=== PATIENT | female | born 1985 | race Asian ===

== ENCOUNTER 2018-08-23 05:45 | Day surgery (SDC) | payer OTHER ==
[~2018-08-23 05:45] MED LIST: Buffered Lidocaine 1% SYRIN* 1 ML/SYRINGE INTRADERM ONE
[2018-08-23] MEDS ORDERED: Famotidine IV* 10 MG/ML 2 ML (20 mg) IV ONE (06:00)
[2018-08-23] MEDS ORDERED: Lactated Ringers 1000 ML Bag* 1,000 ML IV SCH (06:00)
[2018-08-23] MEDS ORDERED: Dexamethasone IV* 4 MG/ML 1 ML (4 MG) IV SLOW PU ONE (06:00)
[2018-08-23] MEDS ORDERED: Scopolamine 1.5 mg* PATCH TRANSDERM ONE (06:00)
[2018-08-23] MEDS ORDERED: Dexamethasone IV* 4 MG/ML 1 ML (4 MG) ONE (06:03)
[2018-08-23] MEDS ORDERED: Famotidine IV* 10 MG/ML 2 ML (20 mg) ONE (06:04)
[2018-08-23] MEDS ORDERED: Scopolamine 1.5 mg* PATCH ONE (06:04)
[2018-08-23] MEDS ORDERED: Bupivacaine 0.25% SDV PF* 10 ML VIAL INJ ONE (07:17)
[2018-08-23] MEDS ORDERED: Lidocaine 1% INJ* 10 MG/ML 30 ML SDV ONE (07:17)
[2018-08-23] MEDS ORDERED: fentaNYL* 50 MCG/ML 2 ML VIAL (100 MCG VIAL) ONE (07:23)
[2018-08-23] MEDS ORDERED: Succinylcholine* 20 MG/ML 10 ML VIAL ONE (07:23)
[2018-08-23] MEDS ORDERED: Propofol* 10 MG/ML 20 ML BTL ONE (07:23)
[2018-08-23] MEDS ORDERED: Midazolam* 1 MG/ML 5 ML VIAL (5 MG) ONE (07:23)
[2018-08-23] MEDS ORDERED: Lidocaine 2% PF * 5 ML VIAL ONE (07:24)
[2018-08-23] MEDS ORDERED: Naloxone* 0.4 MG/ML 1 ML VIAL IV PRN (08:08)
[2018-08-23] MEDS ORDERED: DiMENhydriNATE IV* 50 MG/ML VIAL IV PUSH PRN (08:08)
[2018-08-23] MEDS ORDERED: HYDROcodone/ACETAMIN 5-325 MG* 1 TAB PO PRN (08:08)
[2018-08-23] MEDS ORDERED: fentaNYL* 50 MCG/ML 2 ML VIAL (100 MCG VIAL) IV PRN (08:08)
[2018-08-23] MEDS ORDERED: oxyCODONE/Acetamin 5/325 MG* TAB PO PRN (08:08)
[2018-08-23] MEDS ORDERED: Phenylephrine 40 MCG/ML SYRINGE ONE (08:26)
[2018-08-23] MEDS ORDERED: Ondansetron INJ* 2 MG/ML VIAL ONE (09:38)
--- NOTE | 2018-08-23 12:19 | OP ---
DICTATION ENDS ABRUPTLY - FULLY REDICTATED DATE OF OPERATION: 08/23/18 - [facility] DATE OF : 89 SERVICE: General Surgery. SURGEON: Zahraa Bauer MD BAG BAILER: Nanci Bennett MD ANESTHESIOLOGIST: Dr. Terrance March. ANESTHESIA: General endotracheal anesthesia. PRE-OP DIAGNOSIS: Papillary thyroid carcinoma. POST-OP DIAGNOSIS: Papillary thyroid carcinoma. OPERATIVE PROCEDURE: Right thyroid lobectomy. INDICATIONS: Ms. Lorenzo is a very pleasant 33-year-old female with a history of an incidentally found right thyroid nodule that on followup was biopsied and found to be papillary thyroid carcinoma. Given that it was only 1 cm, she elected to undergo a right hemithyroidectomy. She understood the risks, benefits, and alternatives of the procedure, and she wished to proceed. SPECIMEN: Right thyroid lobe. DESCRIPTION OF PROCEDURE: The patient was brought back to the operating room and placed on the operating table in the supine position. Sequential compression devices were placed on the bilateral lower extremities for DVT prophylaxis. No antibiotics were administered. The patient underwent general endotracheal anesthesia. Her neck was positioned in the extended position and the nerve monitoring electrodes were DICTATION ENDS ABRUPTLY [id number]/[facility] #: [id number] MTDD
[2018-08-23 15:51] VITALS: BP 97/53
--- NOTE | 2018-08-23 23:46 | OP ---
CC: Dr. Sixto Mahan * DATE OF OPERATION: 08/23/18 - SDS DATE OF : 89 SERVICE: General Surgery. SURGEON: Zahraa Bauer MD ELEVATOR CONSTRUCTOR ELECTRIC: Nanci Bennett MD ANESTHESIOLOGIST: Dr. Terrance March. PRE-OP DIAGNOSIS: Papillary thyroid cancer. POST-OP DIAGNOSIS: Papillary thyroid cancer. OPERATIVE PROCEDURE: Right thyroid lobectomy. INDICATIONS: Ms. Lorenzo is a very pleasant 33-year-old female with no significant past medical history who was found incidentally to have a right thyroid nodule. During followup for this, she had a biopsy that confirmed papillary thyroid cancer. Therefore, she gave informed consent for a right thyroid lobectomy given that this was a 1 cm nodule. She understood the risks, benefits, and alternatives of the procedure, and she wished to proceed. SPECIMEN: Right thyroid lobe. ESTIMATED BLOOD LOSS: Minimal, less than 10 cc. DESCRIPTION OF PROCEDURE: The patient was brought back to the operating room and placed on the operating table in the supine position. Sequential compression devices were placed on the bilateral lower extremities for DVT prophylaxis. Antibiotics were not administered. The patient underwent general endotracheal anesthesia. Prior to beginning the procedure, a time-out was performed verifying the patient's name, MR number, and the procedure to be performed. At this point, local anesthesia was administered to the neck prior to prepping the patient, it was consisting of 1% lidocaine in 0.25% Marcaine. After this was done, the neck was prepped and draped in normal sterile fashion and then a second time-out was performed verifying the patient's name, MR number , and the laterality of the procedure which was the right thyroid lobectomy. Next, a transverse incision was made in the midline of the neck approximately 2 fingerbreadths above the sternal notch in a natural crease line that had been previously marked. The skin was divided down to the subcutaneous tissue and the platysma was then divided. Inferior and superior subplatysmal flaps were developed and the strap muscles were divided in the midline and retracted laterally. The isthmus was divided superiorly and then a tunnel was made underneath the thyroid gland, and then the isthmus was divided inferiorly and superiorly after making a tunnel underneath the thyroid. Once the isthmus was divided, the medial attachments were then divided off the trachea. The space of Reeve's was developed and then the strap muscles were divided off of the right thyroid lobe laterally. The middle thyroid vein was taken. Once this was done, the superior pole vessels were then divided using combination of LigaSure and a 2-0 silk suture. Once this was done, the thyroid was then lifted up and out of the neck and then the recurrent laryngeal nerve was identified and its entire course was traced out, and once this was done, the thyroid was able to taken safely off the trachea using LigaSure. Once this was done, the right thyroid lobe was taken off the table as specimen after checking for no parathyroid glands. Actually, the parathyroids were identified in situ, both the right upper and lowers were identified. After this was done, hemostasis was obtained. Tisseel was placed in the neck. The strap muscles were reapproximated using interrupted 3-0 Vicryl sutures and then the platysma was approximated using interrupted 3-0 Vicryl sutures. Once this was done, a Prolene suture was used to close the skin. A sterile dressing was in place and the patient's anesthesia was reversed and she was taken to the PACU in stable condition. At the end of the case, all counts were correct and I was present during the entirety of the case. [id number]/[facility] #: [id number] PRASANTH
[2018-08-26] MEDS ORDERED: Scopolamine PATCH Remove* 1 NOTE MISC PATCH OFF ONE (06:00)
== END 2018-08-23 16:36 | disposition home or self-care (01) ==
LOC: OR 05:45
PROVIDERS: ATTEND Surgery
DX: C73 Malignant neoplasm of thyroid gland (principal)
CPT/HCPCS: 81025; 88307; A9270-GY; C1776; J0330; J1100; J2250; J2405; J2704; J3010; J3490

== ENCOUNTER 2018-08-25 00:38 | Emergency (ER) | payer OTHER ==
[2018-08-25 02:17] LABS: ABS Basophils 0 10^3/ul (0-0.2); ABS Eosinophils 0 10^3/ul (0-0.6); ABS Lymphocytes 1.4 10^3/ul (1.0-4.8); ABS Monocytes 0.5 10^3/ul (0-0.8); ABS Neutrophils 10.5 10^3/ul (1.5-7.7); ABS Nucleated RBC 0 10^3/ul; Eosinophil % 0.1 %; Hematocrit 37 % (33-41); Hemoglobin 12.6 g/dL (12.0-16.0); Lymphocyte % 11.5 %; Mean Corpuscular HGB Conc 34 g/dL (31-36); Mean Corpuscular Hemoglobin 31 pg (27-31); Mean Corpuscular Volume 92 fL (80-97); Mean Platelet Volume 7.9 fL (7.4-10.4); Nucleated Red Blood Cells % 0; Platelet Count 278 10^3/uL (150-450); Red Blood Count 4.07 10^6 /uL (3.70-4.87); Red Cell Distribution Width 13 % (10.5-15); White Blood Count 12.5 10^3/uL (3.5-10.8)
[2018-08-25 02:36] LABS: ALT 10 U/L (7-52); AST 12 U/L (13-39); Albumin 4.7 g/dL (3.2-5.2); Albumin/Globulin Ratio 1.7 (1-3); Alkaline Phosphatase 34 U/L (34-104); Anion Gap 8 mmol/L (2-11); BUN/Creatinine Ratio 14.3 (8-20); Blood Urea Nitrogen 8 mg/dL (6-24); CO2 Carbon Dioxide 27 mmol/L (22-32); Chloride 105 mmol/L (101-111); EGFR African American 152.8 (>60); EGFR Non-African American 126.3 (>60); Globulin 2.7 g/dL (2-4); Glucose 112 mg/dL (70-100); Potassium 3.5 mmol/L (3.5-5.0); Sodium 140 mmol/L (135-145); Total Protein 7.4 g/dL (6.4-8.9)
[2018-08-25 02:42] LABS: HCG Pregnancy < 0.60 mIU/mL
--- NOTE | 2018-08-25 03:09 | ED ---
GI/ HPI - HPI Summary HPI Summary: This patient is a 33 year old female brought in by EMS presenting to [facility] with a chief complaint of constipation s/p partial thyroidectomy yesterday. The patient took one Percocet last night. The patient also complains of neck pain. She states she is unable to urinate and unable to have a BM. She has difficulty ambulating. She rates her pain 10/10 in severity. Patient denies fever. - History of Current Complaint Chief Complaint: EDConstipation Time Seen by Provider: 08/25/18 02:41 Stated Complaint: CONSTIPATION/UNABLE TO URINATE AFTER SURGERY Hx Obtained From: Patient Onset/Duration: Started Hours Ago Timing: Constant Pain Intensity: 10 Location of Pain: Suprapubic Associated Signs and Symptoms: Positive: Constipation - Allergy/Home Medications Allergies/Adverse Reactions: Allergies Allergy/AdvReac Type Severity Reaction Status Date / Time No Known Allergies Allergy Verified 08/25/18 00:46 PMH/Surg Hx/FS Hx/Imm Hx Endocrine/Hematology History: Reports: Hx Thyroid Disease - THYROID CANCER Denies: Hx Diabetes, Hx Anemia Cardiovascular History: Denies: Hx Pacemaker/ICD, Other Cardiovascular Problems/Disorders Respiratory History: Denies: Other Respiratory Problems/Disorders GI History: Reports: Other GI Disorders - GALLSTONES Denies: Hx Jaundice History: Denies: Other Problems/Disorders Musculoskeletal History: Reports: Other Musculoskeletal History - Left ankle swelling, fell on Sunday Sensory History: Reports: Hx Contacts or Glasses - GLASSES Denies: Hx Hearing Aid Opthamlomology History: Reports: Hx Contacts or Glasses - GLASSES Neurological History: Denies: Other Neuro Impairments/Disorders - Cancer History Hx Chemotherapy: No - Surgical History Surgery Procedure, Year, and Place: 2 WISDOM TEETH REMOVED 3-4 YEARS AGO Hx Anesthesia Reactions: No Infectious Disease History: No Infectious Disease History: Denies: Traveled Outside the [place] in Last 30 Days - Family History Known Family History: Negative: Cardiac Disease - Social History Alcohol Use: Occasionally Substance Use Type: Reports: None Hx Tobacco Use: No Smoking Status (MU): Never Smoked Tobacco Have You Smoked in the Last Year: No Review of Systems Negative: Fever Positive: other - Constipation Positive: Other - Neck pain All Other Systems Reviewed And Are Negative: Yes Physical Exam - Summary Physical Exam Summary: VITAL SIGNS: Reviewed. GENERAL: Patient is a well-developed and nourished FEMALE who is lying comfortable in the stretcher. Patient is not in any acute respiratory distress. Small dressing over the front of her neck HEAD AND FACE: No signs of trauma. No ecchymosis, hematomas or skull depressions. No sinus tenderness. EYES: PERRLA, EOMI x 2, No injected conjunctiva, no nystagmus. EARS: Hearing grossly intact. Ear canals and tympanic membranes are within normal limits. MOUTH: Oropharynx within normal limits. NECK: Supple, trachea is midline, no adenopathy, no JVD, no carotid bruit, no c- spine tenderness, neck with full ROM. CHEST: Symmetric, no tenderness at palpation LUNGS: Clear to auscultation bilaterally. No wheezing or crackles. CVS: Regular rate and rhythm, S1 and S2 present, no murmurs or gallops appreciated. ABDOMEN: Soft, non-tender. No rebound no guarding, and no masses palpated. Bowel sounds are normal. Distended bladder. EXTREMITIES: FROM in all major joints, no edema, no cyanosis or clubbing. NEURO: Alert and oriented x 3. No acute neurological deficits. Speech is normal and follows commands. SKIN: Dry and warm Triage Information Reviewed: Yes Vital Signs On Initial Exam: Initial Vitals Temp Pulse Resp BP Pulse Ox 99.2 F 75 16 124/58 99 08/25/18 00:44 08/25/18 00:44 08/25/18 00:44 08/25/18 00:44 08/25/18 00:44 Vital Signs Reviewed: Yes Diagnostics - Vital Signs Vital Signs Temp Pulse Resp BP Pulse Ox 08/25/18 00:44 99.2 F 75 16 124/58 99 - Laboratory Lab Results: Lab Results 08/25/18 08/25/18 08/25/18 Range/Units 02:08 02:08 02:08 WBC 12.5 H (3.5-10.8) 10^3/uL RBC 4.07 (3.70-4.87) 10^6 /uL Hgb 12.6 (12.0-16.0) g/dL Hct 37 (33-41) % MCV 92 (80-97) fL MCH 31 (27-31) pg MCHC 34 (31-36) g/dL RDW 13 (10.5-15) % Plt Count 278 (150-450) 10^3/uL MPV 7.9 (7.4-10.4) fL Neut % (Auto) 84.2 % Lymph % (Auto) 11.5 % Emanuel % (Auto) 4.0 % Eos % (Auto) 0.1 % Baso % (Auto) 0.2 % Absolute Neuts (auto) 10.5 H (1.5-7.7) 10^3/ul Absolute Lymphs (auto) 1.4 (1.0-4.8) 10^3/ul Absolute Monos (auto) 0.5 (0-0.8) 10^3/ul Absolute Eos (auto) 0 (0-0.6) 10^3/ul Absolute Basos (auto) 0 (0-0.2) 10^3/ul Absolute Nucleated RBC 0 10^3/ul Nucleated RBC % 0 Sodium 140 (135-145) mmol/L Potassium 3.5 (3.5-5.0) mmol/L Chloride 105 (101-111) mmol/L Carbon Dioxide 27 (22-32) mmol/L Anion Gap 8 (2-11) mmol/L BUN 8 (6-24) mg/dL Creatinine 0.56 (0.51-0.95) mg/dL Est GFR ( Amer) 152.8 (>60) Est GFR (Non-Af Amer) 126.3 (>60) BUN/Creatinine Ratio 14.3 (8-20) Glucose 112 H (70-100) mg/dL Lactic Acid 0.7 (0.5-2.0) mmol/L Calcium 9.0 (8.6-10.3) mg/dL Total Bilirubin 1.00 (0.2-1.0) mg/dL AST 12 L (13-39) U/L ALT 10 (7-52) U/L Alkaline Phosphatase 34 (34-104) U/L C-Reactive Protein 6.50 (<8.01) mg/L Total Protein 7.4 (6.4-8.9) g/dL Albumin 4.7 (3.2-5.2) g/dL Globulin 2.7 (2-4) g/dL Albumin/Globulin Ratio 1.7 (1-3) Beta HCG, Quant < 0.60 mIU/mL Result Diagrams: 08/25/18 02:08 08/25/18 02:08 Lab Statement: Any lab studies that have been ordered have been reviewed, and results considered in the medical decision making process. - Radiology Abdoment XR Radiology Interpretation Completed By: ED Physician Summary of Radiographic Findings: Increased colonic gas and stool consistent with constipation. Pending official radiologist report. GIGU Course/Dx - Course Assessment/Plan: This patient is a 33 year old female presenting to [facility] with a chief complaint of constipation s/p partial thyroidectomy yesterday. A catheter was placed and 1000 CCs of urine were drained. She states she feels better and is able to ambulate without a problem. Her symptoms are secondary to Percocet and anasthesia during her surgery. Abdomen XR showed increased colonic gas and stool consistent with constipation. She will be discharged and instructed to follow up with her PCP. This plan was discussed with the patient and she is agreeable with this plan. - Diagnoses Provider Diagnoses: Constipation, Urinary retention Discharge - Sign-Out/Discharge Documenting (check all that apply): Patient Departure - Discharge Patient Received Moderate/Deep Sedation with Procedure: No - Discharge Plan Condition: Stable Disposition: HOME Patient Education Materials: Constipation (ED), Acute Urinary Retention in Women (ED) Referrals: Nakul WILLINGHAM,Dianna Boyle [Primary Care Provider] - 3 Days Additional Instructions: Return to ED with any new or worsening symptoms. - Attestation Statements Document Initiated by Scribe: Yes Documenting Scribe: Marcus Dawson Provider For Whom Winibe is Documenting (Include Credential): Tanner Alarcon MD Scribe Attestation: Marcus Conde, scribed for Tanner Alarcon MD on 08/25/18 at 0333. Status of Scribe Document: Ready
[2018-08-25 03:27] LABS: Influenza A Molecular NEGATIVE (Negative); Influenza B Molecular NEGATIVE (Negative)
[2018-08-25] MEDS ORDERED: Bisacodyl SUPP* 10 MG SUPP PR ONE (03:35)
[2018-08-25] MEDS ORDERED: Magnesium CITRATE* 300 ML BTL PO ONE (03:35)
[2018-08-25 04:02] VITALS: BP 111/64
== END 2018-08-25 04:04 | disposition home or self-care (01) ==
LOC: ED 00:38
DX: K59.00 Constipation, unspecified (principal); R33.9 Retention of urine, unspecified; E89.0 Postprocedural hypothyroidism; Z85.850 Personal history of malignant neoplasm of thyroid
CPT/HCPCS: 36415; 74019; 80053; 83605; 84702; 85025; 86140; 99283; A9270-GY